=== PATIENT | male | born 1930 | race Caucasian/White ===

== ENCOUNTER → 2016-05-01 | Outpatient (CLI) | payer MEDICARE, OTHER ==
[~2016-05-01] MED LIST: ACET25TA5 PO; ACYC5OIN TOP; ALBU83IN INH; ALPR0.25 PO; ASPI81TA13 PO; BUSP10TA PO; BUSP15TA47 PO; CALC600T57 PO; CARD120C3 PO; CLOP75TA2 PO; COLA100C PO; COQ-200C PO; DOXY100T16 PO; FENO145T PO; FINA5TAB2 PO; FLOM5CAP PO; FLUC10TA PO; LEVA500T PO; MAGICMW SSP; METH4PACK PO; NITR4TASL SL; OMEG1400 PO; ONDA1TAB16 PO; PRED10TA PO; PRED50TA PO; PRED5TA PO; PROC10TA PO; SYMB16INH INH; TRIC1TAB PO; VITMTA PO; VYTO10TA PO; ZEST1TAB5 PO; [UNRECOGNIZED DRUG - CODE] PO
== END ==
LOC: M ONCR 10:17
PROVIDERS: ATTEND Radiology Radiation Oncology
DX: C34.32 Malignant neoplasm of lower lobe, left bronchus or lung (principal)

== ENCOUNTER → 2016-05-28 | Outpatient (CLI) | payer MEDICARE, OTHER ==
[~2016-05-28] MED LIST changes: +GASTROGRAFIN SOLUTION 30ML (Q9963) As Ordered ONE; +ISOVUE-370 76% 100ML VIAL (Q9967) As Ordered ONE
--- NOTE | 2016-05-28 13:19 | REP ---
Clinical: History of small cell lung cancer. Comparison: PET CT dated 04/03/2016. CT dated 03/15/08. Technique: Axial contrast enhanced images from the lung bases to the pubic symphysis using oral and 100 ml Isovue 370 intravenous contrast material with precontrast and delayed images of the abdomen as well as coronal and sagittal re-formations. Findings: Subtle scattered hepatic hypodensities are appreciated and most compatible with metastatic disease measuring roughly up to 2.3 cm maximal diameter in the left lobe. Spleen, pancreas, bilateral adrenal glands and kidneys are normal. Cholelithiasis noted. The enteric system is without obstruction or acute inflammatory process. Colonic diverticula noted without acute diverticulitis. Pelvis demonstrates calcifications within the dependent portion of the bladder possibly within the posterior bladder wall as well as mild prominence and heterogeneity to the prostate gland which measures roughly 5.6 cm maximal diameter. No pelvic fluid or ascites. No intraperitoneal or retroperitoneal adenopathy. No free air. Atherosclerotic changes of the aorta and vasculature noted without aneurysm. Musculoskeletal structures demonstrate degenerative changes without focal osseous abnormality. Lung bases suggest incompletely evaluated left infrahilar lesion measuring 2.5 cm. Impression: 1. Diffuse hepatic metastatic disease with lesions measuring up to approximately 2.3 cm diameter. 2. Lung bases demonstrate left infrahilar lesion. 3. Cholelithiasis. 4. Posterior bladder/bladder wall calcifications and mildly prominent heterogeneous appearance of the prostate gland. 5. Suspicious lesion within the right iliac crest on PET CT is not identified on CT. 6. Further chronic changes. Signed by Yousif Metz MD 05/28/2016 01:10 P
--- NOTE | 2016-05-28 13:53 | REP ---
Clinical : Lung cancer follow-up. Comparison: PET CT dated 04/03/2016. Chest CT dated 03/01/2010. Technique: Axial contrast enhanced images from the thoracic inlet to the upper abdomen using 100 ml Isovue 370 intravenous contrast material with coronal and sagittal re-formations. Findings: Lung tomas demonstrate underlying COPD/emphysematous changes. Post radiation changes are appreciated along the paramediastinal lung zones as well as elements of fibrosis and scarring involving the right middle lobe left lower lobe and to a lesser extent the right lower lobe. Left hilar soft tissue measuring 2.6 cm maximal diameter and subcarinal increased soft tissue suggests adenopathy and possible recurrence given the associated hypermetabolic activity on recent PET CT in the left hilum. No further consolidation, pleural effusion/reaction or pneumothorax. Atherosclerotic changes of the coronary arteries and thoracic aorta noted without cardiomegaly or pericardial effusion and no evidence for aortic aneurysm or dissection. Musculoskeletal structures demonstrate degenerative changes. Limited evaluation of the upper abdomen demonstrates scattered hepatic hypodensities concerning for metastatic disease as well as cholelithiasis. Normal bilateral adrenal glands noted. Impression: 1. Area of increased soft tissue in the left hilum and subcarinal space suggesting adenopathy and possible recurrence given the hypermetabolic activity on recent PET CT. No further pleuroparenchymal process is appreciated and underlying chronic changes and postradiation type changes are again noted. 2. Suspected hepatic metastatic disease. Signed by Yousif Metz MD 05/28/2016 01:44 P
== END ==
LOC: M RAD 10:58
PROVIDERS: ATTEND Internal Medicine Medical Oncology
DX: C34.90 Malignant neoplasm of unspecified part of unspecified bronchus or lung (principal)
CPT/HCPCS: 71260; 74178; Q9963; Q9967

== ENCOUNTER → 2016-07-24 | Outpatient (CLI) | payer MEDICARE, OTHER ==
[~2016-07-24] MED LIST changes: -COLA100C PO; +COLA100C3 PO; -GASTROGRAFIN SOLUTION 30ML (Q9963) As Ordered ONE; -ISOVUE-370 76% 100ML VIAL (Q9967) As Ordered ONE
--- NOTE | 2016-07-25 09:49 | RADONC ---
RADIATION ONCOLOGY FOLLOWUP NOTE DATE: 07/24/2016 CHART NUMBER: [id number]. DIAGNOSIS: Small cell lung carcinoma. STAGE: Metastatic. ECOG PERFORMANCE STATUS: 1. FOLLOWUP NOTE: Mr. Menendez is a very pleasant, 86-year-old white male with the diagnosis of small cell lung carcinoma who is presently undergoing chemotherapy for extensive disease with liver metastasis. The patient presents today reporting that generally he is doing quite well. He does have some limited shortness of breath, which is unchanged secondary to his malignancy and primary radiation treatments. He has no other complaints at this time related to his radiation therapy or disease. REVIEW OF SYSTEMS: The patient's review of systems is positive for some shortness of breath but is otherwise noncontributory. Denies nausea, vomiting, fevers, chills, night sweats, diplopia, headaches, anxiety or depression, anorexia, weight loss, visual disturbances, chest pain, urinary or bowel difficulties, bone pain, or neurological problems. PHYSICAL EXAMINATION: The patient is a well-developed, well-nourished male in no acute distress. HEENT exam is normocephalic, atraumatic. Extraocular movements are intact. There is no palpable cervical, supraclavicular, infraclavicular, axillary, or inguinal lymphadenopathy present. Lungs are clear to auscultation and percussion. Heart has a regular rate and rhythm. Abdomen is benign with no hepatosplenomegaly, masses, or tenderness. Rectal examination reveals a normal anal sphincter tone. Skeletal examination reveals no tenderness to pressure or percussion of the bony skeleton. Extremities reveal no clubbing, cyanosis, or edema. Neurologic exam is grossly intact, as is the remainder of the physical examination. ASSESSMENT: The patient is clinically stable at this point on chemotherapy. Since he is being followed and managed so closely by his other physicians, I have discharged him from our followup except on an as needed basis. cc: MD Andrea Mejia. Fallon Willis MD *Juwan Angulo,
== END ==
LOC: M ONCR 13:17
PROVIDERS: ATTEND Radiology Radiation Oncology
DX: C34.32 Malignant neoplasm of lower lobe, left bronchus or lung (principal)

== ENCOUNTER → 2016-09-12 | Outpatient (CLI) | payer MEDICARE, OTHER ==
--- NOTE | 2016-09-12 11:51 | REP ---
REASON: Dyspnea. COMPARISON: 08/15/2015 Since the last examination, abnormal patchy bilateral hilar opacities and hilar fullness has developed right greater than left. The change is rather marked in appearance. Note is again made of previous median sternotomy and cardiomegaly. The tip of the central venous catheter is unchanged remaining in the superior vena cava. There is no significant change in terms of the osseous structures. IMPRESSION: Abnormal bilateral hilar densities as described above. Adenopathy with neoplasm and perihilar pneumonia cannot be ruled out by plain radiography. Contrast enhanced CT examination of the chest is recommended so it can be compared to the latest prior chest CT of 07/15/2016, which showed findings highly suspicious for malignancy. Signed by Elliott Osman DO 09/12/2016 12:25 P
== END ==
LOC: M RAD 11:19
PROVIDERS: ATTEND Physician Assistant
DX: R06.02 Shortness of breath (principal); R91.8 Other nonspecific abnormal finding of lung field

== ENCOUNTER → 2016-09-24 | Outpatient (REF) | payer MEDICARE, OTHER ==
[2016-09-24 20:45] LABS: PERCENT SATURATION 13.7 % (19.7-37.4)
== END ==
LOC: M LAB REF 16:34
PROVIDERS: ATTEND Internal Medicine Medical Oncology
DX: C34.32 Malignant neoplasm of lower lobe, left bronchus or lung (principal); C34.82 Malignant neoplasm of overlapping sites of left bronchus and lung; C78.7 Secondary malignant neoplasm of liver and intrahepatic bile duct

== ENCOUNTER → 2016-11-26 | Outpatient (REF) | payer MEDICARE, OTHER ==
[~2016-11-26] MED LIST changes: +ACET25TA12 PO; -ACET25TA5 PO; -ASPI81TA13 PO; +ASPI81TA24 PO; -COLA100C3 PO; +COLA100C5 PO; +DOXY-278 PO; +FERR325T16 PO; +HYOS125TA PO; +LEVA1TAB2 PO; -LEVA500T PO; +LORA0.5T11 PO; +MORP20SO3 PO; +OMEP20CA3 PO; -ONDA1TAB16 PO; +ONDA8TAB7 PO; -VYTO10TA PO; +VYTO10TA22 PO
[2016-11-26 18:50] LABS: PERCENT SATURATION 17.5 % (19.7-50.0)
== END ==
LOC: M LAB REF 16:50
PROVIDERS: ATTEND Internal Medicine Medical Oncology
DX: C34.82 Malignant neoplasm of overlapping sites of left bronchus and lung (principal)

== ENCOUNTER → 2016-12-12 | Outpatient (REF) | payer MEDICARE, OTHER | LOC: M LAB REF 15:11 | PROVIDERS: ATTEND Internal Medicine Medical Oncology | DX: C34.90 Malignant neoplasm of unspecified part of unspecified bronchus or lung (principal) ==

== ENCOUNTER 2017-01-31 11:42 | Outpatient (CLI) | payer MEDICARE, OTHER ==
[~2017-01-31] VITALS: Ht 180.3 cm; Wt 88.6 kg
[~2017-01-31 11:42] MED LIST changes: +ACETAMINOPHEN TAB 650MG DOSE (2X325MG) PO SCH; -DOXY-278 PO; -FERR325T16 PO; -HYOS125TA PO; -LORA0.5T11 PO; -MORP20SO3 PO; -OMEP20CA3 PO; +diphenhydrAMINE 25 MG CAP PO SCH
[2017-01-31 12:00] VITALS: BP 128/70
[2017-01-31] MEDS ORDERED: FUROSEMIDE 20 MG/2 ML VIAL (J1940) IV PRN (12:15)
[2017-01-31 14:00] VITALS: BP 132/60
== END 2017-01-31 20:55 | disposition home or self-care (01) ==
LOC: M OPCLI4PV 11:42 → M MSPAV 11:47 → M OPCLI4PV 20:55
PROVIDERS: ATTEND Internal Medicine Medical Oncology
DX: D64.9 Anemia, unspecified (principal); C34.90 Malignant neoplasm of unspecified part of unspecified bronchus or lung; Z88.0 Allergy status to penicillin; Z79.82 Long term (current) use of aspirin; Z79.899 Other long term (current) drug therapy
CPT/HCPCS: 36430; 86850; 86900; 86901; 86920; J1940; P9016

== ENCOUNTER 2017-02-05 14:01 | Inpatient (IN) | payer MEDICARE, OTHER ==
[~2017-02-05] VITALS: Ht 180.3 cm; Wt 87.3 kg
[~2017-02-05 14:01] MED LIST changes: -ACETAMINOPHEN TAB 650MG DOSE (2X325MG) PO SCH; -diphenhydrAMINE 25 MG CAP PO SCH
--- NOTE | 2017-02-05 15:11 | REP ---
Portable chest x-ray: Single view. History: Dyspnea and cough. Comparison chest x-ray: September 12, 2016. Findings: A right-sided Kqmvfl-E-Iowu catheter is seen with its tip in the expected location of the superior vena cava. Prior sternotomy wires are noted. Mild cardiomegaly is again noted. Pulmonary vasculature is not felt to be increased. The left hemidiaphragm is slightly elevated. No infiltrate is seen. Impression: Status post prior median sternotomy. Mild cardiomegaly. Splzih-K-Ifew catheter. Mild elevation left hemidiaphragm. Mildly prominent bibasilar interstitial markings are seen. Signed by Farooq Holman MD 02/05/2017 03:19 P
[2017-02-05] MEDS ORDERED: IPRATROPIUM 0.5MG/ALBUTEROL 2.5MG INH SOL UD 3ML (DUONEB)(J7620) NEB ONE (15:30)
[2017-02-05 15:51] LABS: MEAN CORPUSCULAR HEMOGLOBIN 28.1 pg (27.0-33.0); MEAN CORPUSCULAR HGB CONC 31.8 g/dl (32.0-36.5); MEAN CORPUSCULAR VOLUME 88.5 fl (80.0-96.0); PLATELET COUNT, AUTOMATED 100 10^3/uL (150-450); RED CELL DISTRIBUTION WIDTH 16.7 % (11.5-14.5); WHITE BLOOD COUNT 10.4 10^3/uL (4.0-10.0)
[2017-02-05 15:55] LABS: ADD MANUAL DIFFER YES; DIFF SLIDE NUMBER 283; LEFT SHIFT POS FLAG; POSITIVE MORPH POS FLAG
[2017-02-05 16:19] LABS: ANISOCYTOSIS 1+; MICROCYTOSIS 1+
[2017-02-05 16:21] LABS: ALBUMIN 2.9 GM/DL (3.2-5.2); ALBUMIN/GLOBULIN RATIO 0.81 (1.00-1.93); ALKALINE PHOSPHATASE 112 U/L (45-117); ALT/SGPT 44 U/L (12-78); ANION GAP 8 MEQ/L (8-16); AST/SGOT 25 U/L (15-37); BILIRUBIN,DIRECT 0.2 MG/DL (0.0-0.2); BILIRUBIN,TOTAL 0.5 MG/DL (0.2-1.0); BLOOD UREA NITROGEN 17 MG/DL (7-18); CALCIUM LEVEL 8.4 MG/DL (8.8-10.2); CARBON DIOXIDE LEVEL 26 MEQ/L (21-32); CHLORIDE LEVEL 105 MEQ/L (98-107); GLOMERULAR FILTRATION RATE > 60.0 (>35); GLUCOSE, FASTING 100 MG/DL (83-110); MAGNESIUM LEVEL 2.1 MG/DL (1.8-2.4); PHOSPHORUS LEVEL 3.1 MG/DL (2.5-4.9); POTASSIUM SERUM 4.5 MEQ/L (3.5-5.1); SODIUM LEVEL 139 MEQ/L (136-145); TOTAL PROTEIN 6.5 GM/DL (6.4-8.2)
[2017-02-05 16:26] LABS: FREE T4 1.31 NG/DL (0.76-1.46)
[2017-02-05] MEDS ORDERED: NS 500 ML IV ONE (18:00)
[2017-02-05] MEDS ORDERED: ACETAMINOPHEN TAB 650MG DOSE (2X325MG) PO ONE (18:00)
[2017-02-05] MEDS ORDERED: FLOM5CAP PO (18:19)
[2017-02-05] MEDS ORDERED: FERR325T16 PO (18:19)
[2017-02-05] MEDS ORDERED: OMEP20CA3 PO (18:19)
[2017-02-05] MEDS ORDERED: ISOVUE-370 76% 100ML VIAL (Q9967) As Ordered ONE (19:06)
[2017-02-05] MEDS ORDERED: ACETAMINOPHEN TAB 650MG DOSE (2X325MG) PO PRN (19:30)
[2017-02-05] MEDS ORDERED: ONDANSETRON 4MG/2ML VIAL (J2405) IV PRN (19:30)
[2017-02-05] MEDS ORDERED: PROCHLORPERAZINE 5 MG TAB (S0183) PO PRN (19:45)
[2017-02-05] MEDS ORDERED: NITROGLYCERIN 0.4 MG SUBL TABLET SL PRN (19:45)
[2017-02-05] MEDS ORDERED: ALBUTEROL SULFATE 2.5 MG/0.5 ML INH NEB SOLN INH PRN (19:45)
[2017-02-05 19:46] LABS: BASO % 0.3 % (0.0-1.0); EOS # 0.1 10^3/uL (0.0-0.50); EOS % 0.9 % (0.0-3.0); IMMATURE GRANULOCYTE % 1.1 % (0-0); LYMPH # 0.8 10^3/uL (1.5-4.5); LYMPH % 7.9 % (24.0-44.0); MONO % 10.3 % (0.0-5.0); NEUTROPHILS # 7.9 10^3/uL (1.8-7.7); NEUTROPHILS % 79.5 % (36.0-66.0); RETIC HEMOGLOBIN EQUIVALENT 34.6 pg (24-36)
[2017-02-05 19:47] LABS: REASON FOR REVIEW COMPREHENSIVE REVIEW
[2017-02-05 19:56] LABS: FERRITIN 683 NG/ML (26-388); PERCENT SATURATION 11.5 % (19.7-50.0); TOTAL IRON BINDING CAPACITY 200 UG/DL (250-450)
[2017-02-05] MEDS ORDERED: CEFEPIME HCL 1 GM in D5W 50 ML IV SCH (20:00)
[2017-02-05 20:01] LABS: FOLATE > 24.0 NG/ML (>5.4); VITAMIN B12 LEVEL > 2000 PG/ML (247-911)
[2017-02-05] MEDS ORDERED: TAMSULOSIN 0.4 MG CAP PO SCH (21:00)
[2017-02-05] MEDS ORDERED: ASPIRIN 81 MG ENTERIC TAB PO SCH (21:00)
[2017-02-05] MEDS ORDERED: VANCOMYCIN HCL 1,000 MG, VIAL MATE ADAPTER 1 EACH in D5W 250 ML IV ONE ×2 (21:00→22:00)
[2017-02-05] MEDS: SYMBICORT 160/4.5MCG INHALER 6GM INH SCH (21:09)
--- NOTE | 2017-02-05 21:20 | REPUSA ---
CLINICAL HISTORY: Shortness of breath. Small cell lung cancer. TECHNIQUE: CT chest with IV contrast. Total DLP 676 mGy*cm. COMPARISON: May 28, 2016. CT CHEST WITH CONTRAST: Pulmonary arteries: Patent, without emboli. Lungs: Left lower lobe mass/consolidation which extends from the hilum. The largest portion of the co nsolidation mass measures 11.4 x 4.5 cm on axial image 143. The mass extends along the bronchovascula r bundles and produces obstruction of the lower lobe bronchi. There is extension of the hilar mass al madelyn the lingular bronchovascular bundles as well. 7 mm nodule is noted in the medial aspect of the li ngula on axial image 114. There is a mild left pleural effusion. There is focal atelectasis versus in filtrative lesion at the medial aspect of the right middle lobe (axial image 96) Heart: Normal size. No significant effusion. Aorta: Normal caliber, without aneurysm or dissection. Mediastinum and shawn: Left hilar mass measuring 4.8 x 4.6 cm which extends into the left lower lobe. Scattered mediastinal lymph nodes, largest measuring 2 cm at the level of the right brachiocephalic a rtery. Subcarinal lymph node measures 2.5 cm. Bony thorax: High-grade compression deformity of T8 which is new in the interval. Median sternotomy. Limited upper abdomen: Cholelithiasis. IMPRESSION: Since the prior exam of May 28, there has been explosive growth of the left hilar ma ss, now extending into the left lower lobe and lingula, producing bronchial obstruction of the left l ower lobe. This is compatible with stated diagnosis of small cell lung cancer. In addition, there has been appearance of high-grade T8 compression deformity, likely pathologic. There is a small left ple ural effusion.
[2017-02-05 22:03] VITALS: BP 144/69
--- NOTE | 2017-02-05 22:05 | PHACANCOPD ---
PHARMACY VANCOMYCIN DOSING Pt Demographics Demographics Patient Age:86 , Weight:88.640 , Gender: male Adjusted Body Weight Date: 02/05/17, Adjusted Body Weight: [80.8] Kg Events Past 24 Hours Events Past 24 Hours: NO: Dialysis, Diuretic Therapy, Change in CrCl, Fever, Elevation in WBC, Pending Diagnostics, Pending Procedures, Other Vancomycin Vancomycin Target Ranges: 15-20 mcg/ml Vancomycin Load Y/N: Yes Load Dose Date Time Vancomycin Load Dose: 2000MG Date: 02-05 Time: 2300 Vancomycin Dose Date: 02/05/17. Current Vancomycin Dose: [1000MG Q12H] Intermittent Dosing?: No Labs Labs Item Value Date Time White Blood Count 10.4 10^3/uL H 02/05/17 1540 Creatinine 1.00 MG/DL 02/05/17 1540 Blood Urea Nitrogen 17 MG/DL 02/05/17 1540 Vital Signs Label Value Date Time Patient Temperature 100.6 degrees F 02/05/17 1801 Temperature Source Oral 02/05/17 1801 Micro Microbiology 02/05/17 Blood Culture, Received Pending 02/05/17 Blood Culture, Received Pending Creatinine Clearance Date:02/05/17. Creatinine Clearance: [56]. Pending Labs Trough 10-27 @1000 Assessment and Plan Maintaining Current Dose?: Yes Reason for dose change: No Dose Change Pharmacist Note Pharmacist Note Date: 02/05/17. Pharmacist note:Dosed at 1000mg q12h with a trough ordered for 10-27 @1000. Will continue to monitor and make adjustments as needed. [facility] Feb 05, 2017 22:05
[2017-02-05] MEDS: METOPROLOL TART 25 MG TABLET PO SCH ×2 (23:13→23:37)
[2017-02-05] MEDS: DOCUSATE SODIUM 100 MG CAP PO SCH (23:38)
[2017-02-05] MEDS: HEPARIN SOD (PORCINE) 5000 UNITS/ML VIAL SC SCH (23:39)
[2017-02-05] MEDS: MEROPENEM INJ 1 GM in D5W MINI-BAG PLUS 100 ML IV SCH (23:39)
[2017-02-05 23:59] VITALS: BP_SYST 101; BP_SYST 104; BP_SYST 99; BP_DIAS 53; BP_DIAS 54; BP_DIAS 59
[2017-02-06] VITALS (8 sets, daily range): BP systolic 98–127; BP diastolic 46–66
[2017-02-06] MEDS: VANCOMYCIN HCL 1,000 MG, VIAL MATE ADAPTER 1 EACH in D5W 250 ML IV SCH ×2 (00:45→11:00)
[2017-02-06] MEDS ORDERED: SODIUM CHLORIDE 0.9% INJ 10 ML SYR IV PRN (01:00)
--- NOTE | 2017-02-06 01:54 | HPE ---
DATE OF ADMISSION: 02/05/2017 PRIMARY CARE PROVIDER: Juwan Angulo. ONCOLOGIST: Dr. Salazar. REGIONAL BUSINESS MANAGER: Dr. Penny. HISTORY OF PRESENT ILLNESS: The patient is an 86-year-old male with a past medical history significant for myocardial infarction ([place]) with bypass and cardiac stent, small cell lung cancer with metastasis, coronary artery disease, BPH, hypertension, who presents to [facility] 02/05/2017 for worsening weakness. Patient was diagnosed with small cell lung cancer in 2016. Patient is being followed with oncologist and patient recently just restarted chemotherapy for palliative purpose. The chemotherapy started approximately 5 weeks ago. Per patient, usually patient will have weakness 2-3 days after chemotherapy. However, the last chemotherapy was approximately 2 weeks ago. Approximately on 01/31/2017, patient was sent to [facility] by his oncologist for blood transfusion. At the time, patient became symptomatic and patient was found to have a hemoglobin of approximately 8. Per patient, patient started to feel better after transfusion; however, shortly after patient started continuing to have worsening fatigue, muscle weakness and now he cannot even stand up by himself. Currently, he cannot even walk for a long distance. This morning, he tried to bring out the garbage. He felt exhausted after walking for a short distance. The patient also noted to have a low-grade temperature within the last week. Patient does have a chronic cough with whitish sputum from his lung issues in the past. He denies any increasing cough. Denies any sputum production and denies change of sputum color. Denies any diarrhea. Denies any urinary symptoms. PAST MEDICAL HISTORY: 1. Small cell lung cancer with metastasis (liver). 2. Coronary artery disease. 3. Myocardial infarction status post coronary artery bypass graft and stent. 4. BPH. 5. Hypertension. PAST SURGICAL HISTORY: 1. Left knee replacement. 2. Right upper lobe lobectomy for lung cancer, but the patient does not remember the identity of that cancer. 3. Quadruple bypass. 4. Cardiac catheterization with stent. 5. Right-sided rotator cuff repair. SOCIAL HISTORY: Patient is former smoker, quit smoking 21 years ago. Drinks alcohol occasionally. Denies recreational drug use. The patient is FULL CODE. ALLERGIES: PENICILLIN (throat swelling). REVIEW OF SYSTEMS: GENERAL: Complained of a low-grade fever for the last week or so. No chills. Complained of increasing fatigue, weakness for the past few days. HEENT: No vision changes. No auditory changes. CARDIOVASCULAR: Patient denies any chest pain or palpitations. Patient does have a history of atrial flutter that was diagnosed in August 2015. Currently, the repeat EKG shows patient has atrial flutter. RESPIRATORY: Has chronic cough with whitish sputum production. Patient was diagnosed with small cell lung cancer in 2016. Patient is being followed, currently receiving active chemotherapy for palliative purpose. GASTROINTESTINAL: No nausea. No vomiting. No abdominal pain. GENITOURINARY: Complained of dysuria, frequency, urgency. MUSCULOSKELETAL: Denies any muscle pain or joint pain. NEUROLOGICAL: No numbness or tingling. OBJECTIVE: VITAL SIGNS: Temperature is 100.6, pulse 96, respirations 18, blood pressure 117/61, pulse oximetry is 95% in room air. GENERAL: Fatigued, pale, no signs of acute distress. Alert and oriented times three. HEENT: Normocephalic, atraumatic. Extraocular motor grossly intact. CARDIOVASCULAR: Irregularly irregular, positive S1, S2, tachycardic with a heart rate running around 100s. RESPIRATORY: Decreased breath sounds. Positive wheezes. ABDOMEN: Soft, nontender, nondistended, bowel sounds present. EXTREMITIES: No edema. Pale lower extremities. LABORATORY DATA: WBC 10.4, hemoglobin 8.8, hematocrit 27.7, platelet count is 100. Sodium is 139, potassium 4.5, chloride 105, carbon dioxide 26, BUN 17, creatinine 1, GFR greater than 60, fasting glucose 100, lactic acid 1.2, calcium 8.4, phosphorus 3.1, magnesium 2.1, total bilirubin 0.5, direct bilirubin 0.2, AST 25, ALT 44, alkaline phosphatase 112, troponin I is less than 0.02, C-reactive protein is 9.46, total protein 6.5, albumin 2.9. TSH 1.04, free T4 is 1.31. IMAGING STUDIES: Chest x-ray shows status post median sternectomy. Mild cardiomegaly. Infuse-a- Port catheter in place. Mild prominent bibasilar interstitial markings. ASSESSMENT AND PLAN: 1. Symptomatic anemia. Patient admitted to the progressive care unit (PCU) under inpatient status due to current atrial fibrillation/atrial flutter. Will followup with anemia workup. Patient also has small cell lung cancer under active chemotherapy. I had a chance to discuss the case with patient's oncologist, Dr. Salazar. Patient is currently on second-line chemotherapy for his small cell lung cancer for palliative purpose and the chemotherapy agent is known to cause pancytopenia. Blood consent obtained. Patient will receive two packed red blood transfusions. Will continue to monitor. Most recently, patient was sent to [facility] on 01/31/2017 for three packed red blood transfusions. At the time, patient had hemoglobin of 8. 2. Small cell lung cancer with metastasis. Patient will follow with Dr. Salazar in the outpatient setting. Dr. Salazar explained to the patient the purpose of the chemotherapy is palliation only. There is no treatment available for the patient. Currently, patient had a CT angiogram performed to rule out any acute process that can be treated at the moment. Dr. Salazar also recommended patient will receive a CT abdomen and pelvis without followed by with contrast to stage the patient. Patient was known to have liver metastasis. Patient's proxy and caregiver, the daughter, is aware the patient's prognosis has been poor. However, currently patient is in denial. Code status has been explained to the patient; however, the patient wants to be a FULL CODE. 3. Fever in immunocompromised patient. At this moment, we do not have a clear source for the fever. Differential includes uncontrolled cancer with metastasis versus infectious process, also medication induced reaction. Blood cultures ordered and will follow. Patient does not complain about any urinary or gastrointestinal (GI) symptoms. Patient has a fever in the immunocompromised state. Patient also started to have new onset of atrial flutter. Empirically, we have to cover with broad-spectrum antibiotic and the antibiotic can be tapered at appropriate time. 4. New onset atrial flutter. Patient's EKG was reviewed and previously patient had an episode on EKG showing atrial fibrillation/atrial flutter that was done in June 2015. Later patient returned to sinus rhythm. Patient presented with atrial flutter again. Dr. Penny was consulted, recommended treating the possible acute and underlying cause for patient's illnesses and recommended metoprolol tartrate with holding parameters. It will be held if the heart rate is less than 100. No anticoagulation is recommended at this moment and patient should be treated for symptomatic anemia. 5. History of myocardial infarction ([place]) status post coronary artery bypass graft (CABG) and stents. Aspirin. 6. Orthostatic hypotension. Patient will have two packed red blood cell transfusions. Will follow with orthostatic measurements every 8 hours. 7. Hypertension. Currently, patient's blood pressure is soft. Will hold the blood pressure medication except the metoprolol for the rate control. 8. BPH. On Flomax. 9. Gastroesophageal reflux disease. On Proscar. DISPOSITION: The patient came in here for worsening weakness. Currently, will work up for possible reversible causes. Patient does have active small cell lung cancer with liver metastasis. The case discussed with Dr. Salazar. Currently, patient has been receiving the chemotherapy only for palliative purpose and the agent used is the second line. Will assess the patient's tumor progression if patient's tumor continued to progress and there is no more agent for the patient anymore. Currently, patient is still in denial regarding his cancer. It may create difficulty thinking of the long-term treatment goal.
[2017-02-06] MEDS: METOPROLOL TART 25 MG TABLET PO SCH ×2 (06:33→12:00)
[2017-02-06] MEDS: HEPARIN SOD (PORCINE) 5000 UNITS/ML VIAL SC SCH (06:36)
[2017-02-06 06:54] LABS: MEAN CORPUSCULAR HEMOGLOBIN 28.7 pg (27.0-33.0); MEAN CORPUSCULAR HGB CONC 32.6 g/dl (32.0-36.5); PLATELET COUNT, AUTOMATED 112 10^3/uL (150-450); RED CELL DISTRIBUTION WIDTH 16.5 % (11.5-14.5); WHITE BLOOD COUNT 10.1 10^3/uL (4.0-10.0)
[2017-02-06 07:34] LABS: ANION GAP 7 MEQ/L (8-16); BLOOD UREA NITROGEN 13 MG/DL (7-18); CALCIUM LEVEL 8.2 MG/DL (8.8-10.2); CARBON DIOXIDE LEVEL 26 MEQ/L (21-32); CHLORIDE LEVEL 106 MEQ/L (98-107); CREATININE FOR GFR 0.87 MG/DL (0.70-1.30); GLOMERULAR FILTRATION RATE > 60.0 (>35); GLUCOSE, FASTING 90 MG/DL (83-110); POTASSIUM SERUM 4.2 MEQ/L (3.5-5.1); SODIUM LEVEL 139 MEQ/L (136-145)
[2017-02-06] MEDS: SYMBICORT 160/4.5MCG INHALER 6GM INH SCH (07:39)
[2017-02-06] MEDS ORDERED: FERROUS GLUCONATE 324 MG TAB PO SCH (09:00)
[2017-02-06] MEDS ORDERED: OMEPRAZOLE 20 MG CAP PO SCH (09:00)
[2017-02-06] MEDS ORDERED: MULTIVITAMINS/MINERALS THERAP 1 TAB PO SCH (09:00)
[2017-02-06] MEDS ORDERED: FINASTERIDE 5 MG TAB PO SCH (09:00)
[2017-02-06] MEDS ORDERED: SODIUM CHLORIDE 0.9% INJ 10 ML SYR IV SCH (09:00)
[2017-02-06] MEDS: DOCUSATE SODIUM 100 MG CAP PO SCH (09:00)
[2017-02-06] MEDS: MEROPENEM INJ 1 GM in D5W MINI-BAG PLUS 100 ML IV SCH (09:21)
[2017-02-06] MEDS ORDERED: GASTROGRAFIN SOLUTION 30ML PO ONE (10:00)
[2017-02-06] MEDS ORDERED: GASTROGRAFIN SOLUTION 30ML (Q9963) PO ONE (10:30)
--- NOTE | 2017-02-06 10:31 | ECGEPIP ---
Stationary ECG Study [facility] - ED Test Date: 2017-02-05 Pat Name: GLORIA MOSS Department: Room: - Gender: M Sports Physiotherapist: AF : 1930 Requested By: CARMELLA Canales Order Number: [id number] Reading MD: Willow Goldtsein Measurements Intervals [place] Rate: 112 P: ND: 0 QRS: -44 QRSD: 127 T: 87 QT: 352 QTc: 482 Interpretive Statements ATRIAL FLUTTER WITH RAPID VENTRICULAR RESPONSE MARKED LEFT AXIS DEVIATION POSSIBLE ANTERIOR MYOCARDIAL INFARCTION, OF INDETERMINATE AGE Electronically Signed On 02-06-2017 10:30:56 EDT by Willow Goldstein
[2017-02-06] MEDS ORDERED: LORazepam 1 MG TAB PO PRN (12:30)
[2017-02-06] MEDS ORDERED: MORPHINE 10MG/0.5ML ORAL CONCENTRATE SOLUTION U/D SL PRN (12:30)
[2017-02-06] MEDS ORDERED: LORA0.5T11 PO (15:47)
[2017-02-06] MEDS ORDERED: HYOS125TA PO (15:47)
[2017-02-06] MEDS ORDERED: MORP20SO3 PO (15:47)
[2017-02-06] MEDS ORDERED: LEVA1TAB2 PO (15:49)
[2017-02-06] MEDS ORDERED: DOXY-278 PO (15:49)
--- NOTE | 2017-02-06 16:07 | DS.PDOC ---
Discharge Summary General Date of Admission Feb 05, 2017 at 19:29 Date of Discharge 02/06/17 Discharge Summary PROCEDURES PERFORMED DURING STAY: None ADMITTING DIAGNOSES/ DISCHARGE DIAGNOSES: 1. 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 He was found to have worsening of his underlying lung mass and a low Hg. He received transfusion and had an appropriate increase in his Hg. I have discussed the findings of the CTA chest with the patient and advised him of what was found. He was told of the "explosive increase" in the size of the lung mass despite chemotherapy. I have discussed these findings with Dr. Salazar , who has advised me that there is no other chemotherapy options that can be offered. She beleived the comfort measures would be a good approach moving forward. Patient had his family members; and several daughters and sons in the room when I discussed what was found and that no other medical treatments were available. His status has been changed to comfort measures only. HOSPITAL COURSE: 1. Dyspnea - likely 2/2 symptomatic anemia 2/2 chemotherapy, possibly 2/2 worsening Small Cell Lung CA, possibly post-obstructive pneumonia 2. 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 Fever - etiology unclear; possibly post-obstructive pneumonia 4. Atrial flutter 5. ME / CAD s/p CABG and Stents 6. Orthostatic hypotension 7. HTN 8. BPH 9. GERD Discussed goals of care with patient given that there were limited medical interventions that are available. Patient and family have been made aware of new findings on CTA. Patient has been changed to comfort measures only status and a hospice consultation has been made. Patient will be going home with family who will provide 24/ care for the patient. Hospice will be following with them outpatient. DISCHARGE MEDICATIONS: Please see below. ALLERGIES: Please see below. LABORATORY DATA: Please see below. ACTIVITY: As tolerated DIET: As tolerated DISPOSITION: Home with hospice DISCHARGE INSTRUCTIONS: Return to hospital if pain is uncontrolled DISCHARGE CONDITION: Guarded TIME SPENT ON DISCHARGE: Greater than 35 minutes. Vital Signs/I&Os Vital Signs Date Time Temp Pulse Resp B/P (MAP) Pulse Ox O2 Delivery O2 Flow Rate FiO2 02/06/17 12:00 87 127/59 02/06/17 08:00 97.9 19 98 Room Air I&O- Last 24 Hours up to 6 AM 02/07/17 06:00 Intake Total 240 ml Output Total 700 ml Balance -460 ml Laboratory Data Labs 24H Laboratory Tests 2 02/05/17 19:43: 02/06/17 05:49: Nucleated Red Blood Cells % (auto) 0.2H, Anion Gap 7L, Glomerular Filtration Rate > 60.0, Blood Urea Nitrogen 13, Creatinine 0.87, Sodium Level 139, Potassium Level 4.2, Chloride Level 106, Carbon Dioxide Level 26, Calcium Level 8.2L 02/06/17 05:51: Urine Appearance HAZY, Urine Color YELLOW, Urine pH 5.0, Urine Specific [place] 1.042, Urine Protein NEGATIVE, Urine Glucose (UA) NEGATIVE, Urine Ketones NEGATIVE, Urine Urobilinogen 2.0H, Urine Bilirubin NEGATIVE, Urine Leukocyte Esterase NEGATIVE, Urine Blood NEGATIVE, Urine Nitrite NEGATIVE, Urine WBC (Auto ) 2, Urine RBC (Auto) 4H, Urine Hyaline Casts (Auto) 0, Urine Bacteria (Auto) NEGATIVE, Urine Squamous Epithelial Cells 0, Urine Mucus (Auto) SMALL, Urine Sperm (Auto) CBC/BMP Laboratory Tests 02/06/17 05:49 Red Blood Count 3.42 L, Mean Corpuscular Volume 88.0, Mean Corpuscular Hemoglobin 28.7, Mean Corpuscular Hemoglobin Concent 32.6, Red Cell Distribution Width 16.5 H, Calcium Level 8.2 L Microbiology Microbiology 02/05/17 Blood Culture, Received Pending 02/05/17 Blood Culture, Received Pending 02/06/17 Urine Culture, Received Pending Discharge Medications Scheduled (Vytorin 10-20 mg) 1 Tab Tab, 1 TAB PO QHS, (Reported) Aspirin (Aspirin EC) 81 Mg Tab, 81 MG PO QHS, (Reported) Budesonide/Formoterol (Symbicort 160-4.5 Mcg/Act) 60 Puff/Inhaler Aers, 1 PUFF INH BID, (Reported) Docusate Sodium (Colace) 100 Mg Cap, 100 MG PO BID, (Reported) Doxycycline Hyclate (Doxycycline) 100 Mg Cap, 100 MG PO Q12H Finasteride (Finasteride) 5 Mg Tab, 5 MG PO DAILY, (Reported) Levofloxacin Hemihydrate (Levaquin) 500 Mg Tab, 500 MG PO DAILY Multivitamins *[facility] STOCKED* (Thera M Plus *[facility] STOCKED*) 1 Tab Tab, 1 TAB PO DAILY, (Reported) Omeprazole (Omeprazole) 20 Mg Cap, 20 MG PO DAILY, (Reported) Tamsulosin Hydrochloride (Flomax) 0.4 Mg Cap, 0.4 MG PO QHS, (Reported) Scheduled PRN Albuterol Sulfate (Albuterol Sulfate) 2.5 Mg/3 Ml Nebu, 2.5 MG INH TID PRN for SOB/WHEEZING, (Reported) Hyoscyamine Sulfate (Hyoscyamine Sulfate) 0.125 Mg Sub, 0.125 MG PO Q4HP PRN for TERMINAL SECRETIONS Use sublingually if unable to swallow Lorazepam (Lorazepam) 0.5 Mg Tab, 0.5 MG PO Q4HP PRN for ANXIETY/AGITATION Use sublingually if unable to swallow Morphine Sulfate (Morphine Sulfate) 100 Mg/5 Ml Jennifer, 0.25-1 ML PO Q2H PRN for PAIN OR DYSPNEA Use sublingually if unable to swallow Nitroglycerin (Nitrostat) 0.4 Mg Subl, 0.4 MG SL Q5MP PRN for CHEST PAIN, ( Reported) Ondansetron HCl (Ondansetron HCl) 8 Mg Tab, 8 MG PO PRN PRN for NAUSEA OR VOMITING, (Reported) WITH CHEMO Prochlorperazine Maleate (Prochlorperazine Maleate) 10 Mg Tab, 10 MG PO TID PRN for NAUSEA OR VOMITING, (Reported) WITH CHEMO Allergies Coded Allergies: Penicillins (Unverified Allergy, Severe, throat swells, 02/05/17) SAUL ESQUIVEL MD Feb 06, 2017 16:07
== END 2017-02-06 17:28 | disposition hospice, home (50) | DRG 181 ==
LOC: M ED 14:01 → M ED INP 19:29 → M PCU 21:49
PROVIDERS: ADMIT Internal Medicine; ATTEND Internal Medicine
PROC: 30233N1 Transfusion of Nonautologous Red Blood Cells into Peripheral Vein, Percutaneous Approach (ICD-10-PCS; principal; 2017-02-06)
DX: C34.90 Malignant neoplasm of unspecified part of unspecified bronchus or lung (principal); C78.7 Secondary malignant neoplasm of liver and intrahepatic bile duct; I48.92 Unspecified atrial flutter; D63.0 Anemia in neoplastic disease; Z51.5 Encounter for palliative care; I95.1 Orthostatic hypotension; I25.2 Old myocardial infarction; N40.0 Benign prostatic hyperplasia without lower urinary tract symptoms; K21.9 Gastro-esophageal reflux disease without esophagitis; I25.10 Atherosclerotic heart disease of native coronary artery without angina pectoris; I10 Essential (primary) hypertension; Z92.21 Personal history of antineoplastic chemotherapy; Z96.652 Presence of left artificial knee joint; Z87.891 Personal history of nicotine dependence; Z88.0 Allergy status to penicillin; Z90.2 Acquired absence of lung [part of]; Z95.1 Presence of aortocoronary bypass graft; Z79.82 Long term (current) use of aspirin; Z79.899 Other long term (current) drug therapy